=== PATIENT | male | born 1985 | race Caucasian/White ===

== ENCOUNTER 2019-11-23 15:47 | Inpatient (IN) | payer SELFPAY ==
[2019-11-23] VITALS (8 sets, daily range): BP systolic 87–136; BP diastolic 65–90; PULSE 101–123; RESP 16–23; TEMP 36.6; O2SAT 77–100; BMI 22.3
--- NOTE | 2019-11-23 15:51 | XR_ITS ---
WS: [id number] CHEST XRAY TECHNIQUE: Portable chest. CLINICAL INFORMATION: ams COMPARISON: None. FINDINGS: Heart: Normal cardiac silhouette. Lungs: Diffuse left greater than right airspace infiltrates compatible with pneumonia. Consider viral pneumonia. No significant pleural fluid. Bones: Normal visualized bony structures. XR/XR chest 1V portable [id number] IMPRESSION: Diffuse left greater than right airspace infiltrates consistent with pneumonia. Consider viral pneumonia.
--- NOTE | 2019-11-23 15:51 | ECG_ITS ---
Measurements Intervals [place] Rate: 116 P: 51 SD: 136 QRS: 96 QRSD: 97 T: 70 QT: 336 QTc: 467 SINUS TACHYCARDIA BORDERLINE RIGHT AXIS DEVIATION [QRS AXIS > 90] ABNORMAL RHYTHM ECG No previous ECG available for comparison Electronically Signed On 11-24-2019 18:07:20 CDT by Wm Mcleod M.D. [email or web address]
[2019-11-23] MEDS: sodium chloride 0.9% 1,000 ML 999 ML IV (16:11)
--- NOTE | 2019-11-23 16:15 | W.ED.OVERDOS ---
HPI - Overdose General: Chief Complaint: Overdose Stated Complaint: OVERDOSE Time Seen by Provider: 11/23/19 15:51 Source: patient and EMS Mode of arrival: EMS Limitations: altered mental status History of Present Illness: HPI Narrative: 34-year-old male who is a known IV drug user overdosed on fentanyl. Friends called EMS and they had performed CPR before EMS arrived. When EMS arrived they gave him 2 of Narcan he awoke was quite agitated so gave him Versed. Patient is required oxygen but now will awaken tell me his name. He still is somnolent as well. He denies any suicide attempt. complaint: accidental overdose Onset (ago): minute(s) Review of Systems Const: Denies: fever, chills, body aches or change in appetite Eyes: Denies: blurry vision or eye discomfort ENMT: Denies: throat pain or dental pain Card: Denies: chest pain Resp: Reports: shortness of breath GI: Denies: abdominal pain, nausea, vomiting or diarrhea : Denies: painful urination Musc: Denies: neck pain or back pain Skin/Breast: Denies: rash Neuro: Reports: confusion Psych: Denies: depression Jewel/Lymph: Denies: easy bruising All/Imm: Denies: hives PFSH ED PFSH: Social History Smoking and tobacco status: current every day smoker Physical Exam Const: EXAM LIMITATIONS: altered mental status GENERAL APPEARANCE: in distress and disheveled HENMT: COMMON NORMALS: normocephalic and head/scalp atraumatic HEAD & SCALP: normocephalic and atraumatic Eye: COMMON NORMALS: PERRL and EOMs intact bilaterally PUPIL: Yes PERRL Neck/C-Spine: COMMON NORMALS: full ROM and supple Chest: COMMONS NORMALS: inspection of chest normal and palpation of chest normal Resp: COMMON NORMALS: no retractions and no use of accessory muscles EFFORT & INSPECTION: Yes respiratory distress AUSCULTATION: rales and diminished lung sounds Cardio: COMMON NORMALS: regular rate, regular rhythm and no murmurs RATE: regular rate RHYTHM: regular rhythm GI: COMMON NORMALS: normal to inspection, nondistended, normoactive bowel sounds, soft to palpation, non-tender and no masses PALPATION: Yes soft Extremity: COMMON NORMALS: normal to inspection and full ROM Neuro: COMMON NORMALS: moves all extremities and no focal motor deficits Psych: COMMON NORMALS: mental status grossly normal, thought process normal and cooperative THOUGHT PROCESS: normal thought process Skin: COMMON NORMALS: no rashes or lesions noted and no wounds GENERAL SKIN EXAM: no rashes or lesions noted Course Vital Signs: Vital signs: Vital Signs Temperature 97.9 F 11/23/19 15:47 Pulse Rate 102 H 11/23/19 20:00 Respiratory Rate 16 11/23/19 20:00 Blood Pressure 136/90 11/23/19 20:00 Pulse Oximetry 92 11/23/19 20:00 MDM - Overdose MDM Narrative: Medical decision making narrative: Patient presents here with overdose on fentanyl. Patient did have CPR at scene by bystanders and had awoken after Narcan administration. Patient given Versed as he was combative after Narcan. Patient has been hypoxic and x-ray shows pulmonary edema versus a pneumonia. It is not improved while he is here. I spoke to Dr. Chauhan was seen patient will admit to the ICU. Patient started on antibiotics as well. This was recreational and not an intentional overdose Lab Data: Labs: Lab Results 11/23/19 11/23/19 11/23/19 Range/Units 17:32 17:32 18:31 WBC 16.3 H (4.0-10.0) 10^3/ uL RBC 5.10 (4.1-5.3) 10^6/u L Hgb 15.6 (11.7-16.6) g/dL Hct 46.7 (42.0-52.0) % MCV 91.6 (80-94) fL MCH 30.6 (28.0-34.0) pg MCHC 33.4 (30.0-36.0) g/dL RDW 12.6 (12.1-15.1) % Plt Count 194 (130-400) 10^3/c mm MPV 9.5 (7.4-10.4) fL Neut % (Auto) 82.6 % Lymph % (Auto) 11.2 % [place] % (Auto) 5.5 % Eos % (Auto) 0.3 % Baso % (Auto) 0.1 % Neut # (Auto) 13.4 H (1.8-7.7) 10^3/u L Lymph # (Auto) 1.8 (0.8-4.8) 10^3/u L [place] # (Auto) 0.9 (0.2-0.9) 10^3/u L Eos # (Auto) 0.1 (0.0-0.8) 10^3/u L Baso # (Auto) 0.0 (0.0-0.1) 10^3/u L Nucleated RBC % (a uto) 0 % Nucleated RBCs # 0.0 /100WBC Specimen Type Arterial Sample Site Radial, right ABG pH 7.29 L (7.35-7.45) ABG pCO2 50.0 H (35-45) mmHg ABG pO2 188.0 H* (80.0-100.0) mmH g ABG HCO3 23.9 (22-26) mmol/L ABG Base Excess -3.4 L (-2.0-2.0) mmol/ L Jeb Test Pos Hematocrit 50.9 (42-52) % O2 Delivery Device Nrb O2 Liters/Min 15.0 % FiO2 100.0 % [employer] Asc[employer] Consultant ID ed Sodium 140 (136-145) mmol/L Potassium 4.5 (3.5-5.1) mmol/L Chloride 105 (98-107) mmol/L Carbon Dioxide 25 (22-29) mmol/L Anion Gap 14.5 (5-19) BUN 10 (6-20) mg/dL Creatinine 0.8 (0.7-1.2) mg/dL GFR Calculation 111.3 (90-130) mL/min Glucose 102 (65-115) mg/dL Calculated Osmolal ity 286 (285-295) mOsm/k g Calcium 8.5 (8.5-10.5) mg/dL Total Bilirubin 0.3 (0.15-1.2) mg/dL AST 98 H (0-40) U/L ALT 118 H (0-41) U/L Alkaline Phosphata se 101 (40-130) IU/L Total Protein 7.0 (6.6-8.7) g/dL Albumin 3.7 (3.5-5.2) g/dL Globulin 3.3 (1.3-4.6) g/dL Salicylates < 0.3 L (3-10) mg/dL Acetaminophen < 5.0 L (10-30) ug/mL Ethyl Alcohol 71 H (0-10) mg/dL Imaging Data^: CXR: Attestation: I personally reviewed and interpreted this imaging study as follows: My impression: pulmonary edema EKG Data^: EKG 1: Attestation: I personally reviewed and interpreted this EKG as follows: EKG interpretation date: 11/23/19 EKG interpretation time: 16:28 Interpretation: sinus tach hr [address] or t wave abnormalities qrs 97 qtc 405 Critical Care Time Critical Care Time: Critical Care Time: Yes Total Critical Care Time: 35 Attestation: This case had a high probability of a clinically significant, sudden, or life threatening deterioration of this patient's condition which required my full and direct attention, intervention and personal management. Discharge Plan Discharge Patient Disposition: Admitted As Inpatient Clinical Impression: Drug overdose, Pulmonary edema Condition: Stable Prescriptions: No Action Unable to Assess RF: 0 Coding Level of Care Code ED Food And Beverage Manager for Chg Fwd Exam Comprehensive
[2019-11-23 17:49] LABS: Basophils % 0.1 %; Eosinophils # 0.1 10^3/uL (0.0-0.8); Eosinophils % 0.3 %; Hematocrit 46.7 % (42.0-52.0); Hemoglobin 15.6 g/dL (11.7-16.6); Lymphocytes # 1.8 10^3/uL (0.8-4.8); Lymphocytes % 11.2 %; Mean Corpuscular HGB Conc 33.4 g/dL (30.0-36.0); Mean Corpuscular Hemoglobin 30.6 pg (28.0-34.0); Mean Corpuscular Volume 91.6 fL (80-94); Mean Platelet Volume 9.5 fL (7.4-10.4); Monocytes # 0.9 10^3/uL (0.2-0.9); Monocytes % 5.5 %; Neutrophils # 13.4 10^3/uL (1.8-7.7); Neutrophils % 82.6 %; Nucleated Red Blood Cells % 0 %; Platelet Count 194 10^3/cmm (130-400); Red Cell Distribution Width 12.6 % (12.1-15.1); White Blood Count 16.3 10^3/uL (4.0-10.0)
--- NOTE | 2019-11-23 17:51 | XR_ITS ---
WS: [id number] CHEST XRAY TECHNIQUE: Portable chest. CLINICAL INFORMATION: sob COMPARISON: November 23, 2019 FINDINGS: Heart: Normal cardiac silhouette. Lungs: Diffuse bilateral airspace infiltrates worse in the left unchanged from previous. Findings con sistent with pneumonia, consider viral pneumonia. Bones: Normal visualized bony structures. XR/XR chest 1V portable [id number] IMPRESSION: Unchanged diffuse left greater than right airspace infiltrates consistent with pneumonia. Consider viral pneumonia.
[2019-11-23 18:02] LABS: Alanine Aminotransferase 118 U/L (0-41); Albumin Level 3.7 g/dL (3.5-5.2); Alcohol Level 71 mg/dL (0-10); Alkaline Phosphatase 101 IU/L (40-130); Anion Gap 14.5 (5-19); Aspartate Amino Transferase 98 U/L (0-40); Blood Urea Nitrogen 10 mg/dL (6-20); Calcium 8.5 mg/dL (8.5-10.5); Carbon Dioxide 25 mmol/L (22-29); Chloride 105 mmol/L (98-107); Creatinine Clr Calc Pharmacy 137.8554; Globulin 3.3 g/dL (1.3-4.6); Glomerular Filtration Rate 111.3 mL/min (90-130); Glucose 102 mg/dL (65-115); Osmolality Calculated 286 mOsm/kg (285-295); Potassium 4.5 mmol/L (3.5-5.1); Sodium 140 mmol/L (136-145); Total Bilirubin 0.3 mg/dL (0.15-1.2)
[2019-11-23 18:04] LABS: Acetaminophen < 5.0 ug/mL (10-30); Salicylate < 0.3 mg/dL (3-10)
[2019-11-23 18:41] LABS: ABG PH Result 7.29 (7.35-7.45); Arterial Blood Gas Hematocrit 50.9 % (42-52); Base Excess ABG -3.4 mmol/L (-2.0-2.0); Blood Gas Allen Test Pos; Blood Gas Sample Site Radial, right; Blood Gas Sample Type Arterial; HCO3 ABG 23.9 mmol/L (22-26); Oxygen Device NRB
[2019-11-23] MEDS: piperacillin-tazobactam 3.375 GM in sodium chloride 0.9% (plus) 50 ML IV (18:47)
[2019-11-23] MEDS: vancomycin 1,000 MG in sodium chloride 0.9% 250 ML 250 MG IV (18:47)
--- NOTE | 2019-11-23 18:55 | PC.NURSE ---
RT at bedside to place pt on Bipap. Pt awake and alert at this time, cooperative with staff. Pt states he was not trying to hurt himself with the overdose, he was only trying to get high. pt requesting water, Dr Bush notified and ok with water.
[2019-11-23] MEDS: naloxone 0.4 mg/ml SDV IVP (20:32)
[2019-11-23] MEDS: ondansetron 2 mg/ML SDV 2 mL 4 MG IVP (21:31)
--- NOTE | 2019-11-23 21:34 | PM.HP ---
Providers/Chief Complaint Admitting Physician: Gissel Primary Care Provider: none Chief Complaint: OVERDOSE, RESP DISTRESS History of Present Illness Uziel Moy is a 34 year old male who presented to the emergency room via EMS after an accidental fentanyl overdose. His friend started CPR on him in the field. EMS arrived and gave him Narcan. He became agitated after that and did get some Versed. Chest x-ray in the emergency room showed bilateral infiltrates and patient was having some hypoxemia. He remained lethargic as well. He was ultimately put on BiPAP. He states that he uses narcotics usually in IV route about once a week. Denied any suicide attempt. Denies any recent problems with cough, fever. No known sick contacts including no known sick contacts with COVID-19. Patient denies previous hospitalizations for narcotic overdose. He has had alcohol withdrawal symptoms before. He did admit to drinking this evening. Denied any significant medical problems. During the course of my evaluation in the emergency room, patient began having hemoptysis. It was pinkish-red with a slightly frothy appearance. He had some posttussive nausea but no emesis. He filled up the bottom of an emesis basin. Review of Systems Const: Denies: fever, chills or change in weight Eyes: Denies: change in vision ENMT: Denies: throat pain, oral sores/lesions or nasal congestion Card: Reports: chest pain (With cough); Denies: palpitations or edema Resp: Reports: other (Prior to tonight, denied shortness of breath or cough) GI: Denies: abdominal pain, nausea, vomiting, diarrhea or constipation : Reports: other (No recent urinary changes) Musc: Denies: joint pain or redness Skin/Breast: Denies: rash Neuro: Denies: headache, numbness in extremities or weakness in extremities Psych: Denies: anxiety or depression Jewel/Lymph: Denies: easy bruising or easy bleeding Medications/Allergies Home Medications Medication Instructions Recorded Confirmed Last Taken Type No Known Home Medications 11/23/19 11/23/19 Unknown History Allergies Allergy/AdvReac Type Severity Reaction Status Date / Time No Known Allergies Allergy Verified 11/23/19 21:42 PFSH Acute PFSH: Medical History (Updated 11/24/19 @ 08:03 by Yolanda Chauhan MD) Patient denies significant medical history Surgical History (Updated 11/23/19 @ 21:40 by Yolanda Chauhan MD) History of hydrocelectomy left History of surgery on arm left, due to fracture Family History (Updated 11/23/19 @ 21:40 by Yolanda Chauhan MD) Other Family history unknown Social History (Updated 11/23/19 @ 21:41 by Yolanda Chauhan MD) Smoking and tobacco status: current every day smoker Alcohol intake: current Alcohol intake frequency: 3 or more drinks per day Alcohol type: hard liquor Alcohol use comment: lately about 10 shots per day Substance/Drug Use: current Substance/Drug use type: Opiates and IV Drugs Other substance/drug use details: weekly Vitals/I&O/Wt Last Vital Signs Temp 97.9 F 11/23/19 15:47 Pulse 102 H 11/23/19 20:00 Resp 16 11/23/19 20:00 BP 136/90 11/23/19 20:00 Pulse Ox 92 11/23/19 20:00 11/23/19 11/23/19 11/23/19 06:59 14:59 22:59 Intake Total 1300 / 1300 Balance 1300 / 1300 Weight last 48 hrs Weight 72.575 kg Physical Exam Const: COMMON NORMALS: oriented x3 and alert HENMT: HEAD & SCALP: normocephalic and atraumatic NOSE: external nose normal and nasal discharge clear; no epistaxis MOUTH: tongue normal (No bite schmidt) and other (No visible areas of bleeding seen in the mouth) TEETH & GINGIVA: Yes fair dentition THROAT: posterior oropharynx normal Eye: COMMON NORMALS: PERRL and EOMs intact bilaterally Neck/C-Spine: COMMON NORMALS: supple Lymph: LYMPHATIC: no lymphadenopathy noted Chest: CHEST: Yes tenderness sternum Resp: EFFORT & INSPECTION: Yes tachypneic and Yes actively coughing productive AUSCULTATION: crackles Laterality: bilateral (Left greater than right) and diminished lung sounds Cardio: COMMON NORMALS: regular rhythm, no gallops, no murmurs and no rub RATE: tachycardic GI: COMMON NORMALS: soft to palpation and non-tender AUSCULTATION: Yes normoactive bowel sounds Extremity: COMMON NORMALS: normal capillary refill, no clubbing, cyanosis or edema and no calf tenderness Neuro: COMMON NORMALS: moves all extremities and no sensory deficits noted Psych: COMMON NORMALS: cooperative Skin: NARRATIVE SKIN EXAM: Patient with injection sites noted to the arms, some scattered bruises. He has some dried blood on his chest and on his face Data : 11/24/19 04:20 11/24/19 04:20 Micro: Microbiology 11/23/19 18:37 Blood Culture - Preliminary Blood SPECIMEN COLLECTED 11/23/19 18:37 Blood Culture - Preliminary Blood SPECIMEN COLLECTED A&P Assessment and plan (1) Drug overdose: With IV fentanyl. Status post Narcan and CPR in the field. This was recreational/accidental in nature. Status: Acute Qualifiers: Encounter type: initial encounter Injury intent: accidental or unintentional Qualified Code(s): T50.901A - Poisoning by unspecified drugs, medicaments and biological substances, accidental (unintentional), initial encounter (2) Bilateral pulmonary infiltrates on chest x-ray: Differential includes pulmonary edema related to acute event, aspiration, trauma from CPR, infection among others. I have seen a similar appearance in the past with those who nasally ingested narcotics as well. Status: Acute (3) Hemoptysis: Status: Acute (4) Narcotic abuse: Weekly IV narcotics reported Status: Acute (5) Alcohol use: With acute alcohol intoxication Status: Acute Additional A&P Information Other diagnoses include: Elevated transaminases Nicotine dependence with cigarettes ICU admission Broad-spectrum antibiotics including vancomycin, Zosyn and Levaquin. This will provide coverage possibility of MRSA and IV drug user, aspiration and other, pulmonary infections Follow-up pending blood cultures Sputum culture is ordered Oxygen therapy as needed, BiPAP as needed Given appearance on chest x-ray will send for COVID testing as well Check BNP Check pro calcitonin, LDH, CK and CRP Consider consultation with pulmonology in the morning Alcohol withdrawal monitoring SCDs for DVT prophylaxis, no pharmacological prophylaxis secondary to hemoptysis Supportive care otherwise Monitor closely for acute changes Concerns and plans were discussed with patient Full code Attestations Medical Necessity Statement*: Anticipated stay greater than 2 midnights in this patient initially presenting as an overdose who now has evidence of significant abnormalities on chest x-ray and hemoptysis. Covering empirically for pneumonia and further testing as noted above. At high risk of rapid clinical decline. Coding Level of Care Code Acute Tech Ed/Woodshop Teacher for [facility] Fwd Exam Comprehensive Diagnoses Drug overdose T50.901A Encounter type: initial encounter Injury intent: accidental or unintentional Bilateral pulmonary infiltrates on chest x-ray R91.8 Hemoptysis R04.2 Narcotic abuse F11.10 Alcohol use Z72.89
[2019-11-23] MEDS: levofloxacin-dextrose 5 % 750 MG/150 ML PREMIX 100 MG IV (22:37)
--- NOTE | 2019-11-23 22:38 | PC.NURSE ---
covid nasal swab completed per protochol.
[2019-11-23 22:57] LABS: Lactic Sepsis W/Reflex 1.8 mmol/L (0.5-2.2)
[2019-11-23 23:07] LABS: NT Pro B Type Natriuretic Pept 6 pg/mL (0-125); Procalcitonin 0.36 ng/mL (0-0.5)
[2019-11-23 23:18] LABS: C Reactive Protein 9.8 mg/L (0.0-4.9); Creatine Phosphokinase 111 U/L (39-308); Lactate Dehydrogenase 198 U/L (135-225)
[2019-11-24] VITALS (94 sets, daily range): BP systolic 113–143; BP diastolic 62–86; PULSE 77–124; RESP 16–34; TEMP 36.6–37.3; O2SAT 86–100
[2019-11-24 00:14] LABS: Magnesium 1.8 mg/dL (1.7-2.3)
[2019-11-24] MEDS: sodium chloride 0.45% 1,000 ML 50 ML IV (00:22)
--- NOTE | 2019-11-24 00:38 | PC.PHAR ---
Pharmacokinetic dosing service Date: 11/24/19 Time: 38 Objective: Patient: Uziel Moy Floor: ICU-1 Age: 34 yo Serum creatinine: 0.8 mg/dL Height: 71.0 Inches Weight (kg): 72.575 Diagnosis: Relevant medical/social history: Cultures and sensitivities: Other labs: Assessment: IBW (kg): 75.30 Dosing wt(kg): 72.575 Estimated Creatinine clearance (ml/min): 130 Clearance limited to 130 ml/min to reduce risk of overdosing. CRCL method: Cockcroft and Gault using ibw(default). Drug selected: Vancomycin Loading dose (mg): 0 Vd (liters): 65.3 (factor used: 0.9 L/kg) [place] (hr-1): 0.112 Half life (hrs): 6.19 Recommended dose: 1000 mg Interval: 8 hrs Infusion time (hrs): 1.5 Predicted peak (mcg/mL): 23.8 Predicted trough (mcg/mL): 11.49 Total body weight is being used for vancomycin dosing. Renal function is stable [ ] /unstable [ ] Recommendations: Give Vancomycin 1000 mg q 8 hrs with an expected Cpeak of 23.8 mcg/ml and an expected Ctrough of 11.49 mcg/ml Renal dosing of other antibiotics (review renal dosing of other medications and list guidelines here): Thank you for the consult, will continue to follow. Signature: Sarah [facility]
[2019-11-24] MEDS: vancomycin 1,000 MG in sodium chloride 0.9% 250 ML 250 MG IV ×3 (04:16→18:00)
[2019-11-24] MEDS: piperacillin-tazobactam 3.375 GM in sodium chloride 0.9% (plus) 50 ML IV ×3 (04:17→18:00)
[2019-11-24 05:18] LABS: Basophils % 0.1 %; Hematocrit 43.6 % (42.0-52.0); Lymphocytes # 2.8 10^3/uL (0.8-4.8); Lymphocytes % 13.2 %; Mean Corpuscular HGB Conc 34.4 g/dL (30.0-36.0); Mean Corpuscular Hemoglobin 31.6 pg (28.0-34.0); Mean Platelet Volume 9.8 fL (7.4-10.4); Monocytes # 0.9 10^3/uL (0.2-0.9); Monocytes % 4.4 %; Neutrophils # 17.4 10^3/uL (1.8-7.7); Neutrophils % 81.9 %; Nucleated Red Blood Cells % 0 %; Platelet Count 179 10^3/cmm (130-400); Red Blood Count 4.74 10^6/uL (4.1-5.3); Red Cell Distribution Width 12.8 % (12.1-15.1); White Blood Count 21.3 10^3/uL (4.0-10.0)
[2019-11-24 05:32] LABS: Amphetamines Screen Urine Positive (Negative); Barbiturates Screen Urine Negative (Negative); Benzodiazepines Screen Urine Negative (Negative); Cocaine Screen Urine Negative (Negative); Opiate Screen Urine Positive (Negative); PCP Screen Urine Positive (Negative); THC Screen Urine Negative (Negative)
[2019-11-24 05:38] LABS: Alanine Aminotransferase 104 U/L (0-41); Albumin Level 3.7 g/dL (3.5-5.2); Alkaline Phosphatase 92 IU/L (40-130); Anion Gap 13.8 (5-19); Aspartate Amino Transferase 70 U/L (0-40); Blood Urea Nitrogen 11 mg/dL (6-20); Calcium 9.2 mg/dL (8.5-10.5); Carbon Dioxide 27 mmol/L (22-29); Chloride 101 mmol/L (98-107); Globulin 3.5 g/dL (1.3-4.6); Glomerular Filtration Rate 129.9 mL/min (90-130); Glucose 124 mg/dL (65-115); Osmolality Calculated 281 mOsm/kg (285-295); Potassium 4.8 mmol/L (3.5-5.1); Sodium 137 mmol/L (136-145); Total Bilirubin 0.7 mg/dL (0.15-1.2); Total Protein 7.2 g/dL (6.6-8.7)
[2019-11-24] MEDS: pantoprazole 40 mg SDV IVP (08:07)
[2019-11-24] MEDS: folic acid 1 mg Tablet PO (08:53)
[2019-11-24] MEDS: multivitamin therapeutic Tablet 1 TAB PO (08:53)
[2019-11-24 10:30] LABS: Vancomycin Trough 10.1 ug/mL (10-15)
--- NOTE | 2019-11-24 11:55 | P.PN_ITS ---
Subjective Subjective: Interval history: The patient reports feeling better. No acute distress. He reports improved shortness of breath and cough. Hemoptysis has stopped. However there was a lot of blood until this morning. Denies nausea or vomiting. No abdominal pain or chest pain. No diarrhea. No fever or chills Medications: Reviewed: Yes Medication Review Details: Generic Name Dose Route Start Last Admin Trade Name Naun PRN Reason Stop Dose Admin Folic Acid 1 mg 11/24/19 09:00 11/24/19 08:53 Folic Acid PO 1 mg DAILY ALLAN Administration Levofloxacin/Dextr ose 750 mg in 150 mls @ 100 mls/hr 11/23/19 22:15 11/23/19 22:37 Levaquin-D5w IV 100 mls/hr Q24H ALLAN Administration Protocol Sodium Chloride 1,000 mls @ 50 ml s/hr 11/23/19 23:49 11/24/19 00:22 Sodium Chloride 0.45% IV 50 mls/hr .Q20H ALLAN Administration Piperacillin Sod/T azobactam 50 mls @ 12.5 mls /hr 11/24/19 03:00 11/24/19 10:41 Sod 3.375 gm/ So dium Chloride IV 12.5 mls/hr Q8H ALLAN Administration Protocol Vancomycin HCl 1,0 00 mg/ 250 mls @ 250 mls /hr 11/24/19 03:00 11/24/19 10:41 Sodium Chloride IV 250 mls/hr Q8H ALLAN Administration Multivitamins Ther apeutic 1 tab 11/24/19 09:00 11/24/19 08:53 Multivitamin Tab PO 1 tab DAILY ALLAN Administration Pantoprazole Sodiu m 40 mg 11/24/19 09:00 11/24/19 08:07 Protonix IVP 40 mg DAILY ALLAN Administration Vitals/I&O/Wt Last Vital Signs Temp 98 F 11/24/19 10:00 Pulse 83 11/24/19 10:00 Resp 22 H 11/24/19 10:00 BP 125/77 11/24/19 10:00 Pulse Ox 99 11/24/19 10:00 11/23/19 11/24/19 11/24/19 22:59 06:59 14:59 Intake Total 1300 / 1300 730 / 2030 50 / 50 Output Total 600 / 600 Balance 1300 / 1300 130 / 1430 50 / 50 Weight last 48 hrs Weight 72.575 kg Weight 72.575 kg Physical Exam Narrative: EXAM NARRATIVE: The patient is awake alert and oriented. No acute distress. Mood and affect are appropriate. Responses are adequate. Skin is warm and dry. Moist mucous movements. No JVD. Lungs bilateral crackles are present. No respiratory distress at rest. No accessory muscle use. Heart S1, S2, regular Abdomen soft, nontender, bowel sounds are present Extremities no edema cyanosis or calf tenderness bilaterally Neuro exam nonfocal Eyes PERRLA, extra muscles intact. Normal speech Data : 11/24/19 04:20 11/24/19 04:20 Other Labs: Laboratory Results WBC 21.3 10^3/uL (4.0-10.0) H 11/24/19 04:20 RBC 4.74 10^6/uL (4.1-5.3) 11/24/19 04:20 Hgb 15.0 g/dL (11.7-16.6) 11/24/19 04:20 Hct 43.6 % (42.0-52.0) 11/24/19 04:20 MCV 92.0 fL (80-94) 11/24/19 04:20 MCH 31.6 pg (28.0-34.0) 11/24/19 04:20 MCHC 34.4 g/dL (30.0-36.0) 11/24/19 04:20 RDW 12.8 % (12.1-15.1) 11/24/19 04:20 Plt Count 179 10^3/cmm (130-400) 11/24/19 04:20 MPV 9.8 fL (7.4-10.4) 11/24/19 04:20 Neut % (Auto) 81.9 % 11/24/19 04:20 Lymph % (Auto) 13.2 % 11/24/19 04:20 [place] % (Auto) 4.4 % 11/24/19 04:20 Eos % (Auto) 0.0 % 11/24/19 04:20 Baso % (Auto) 0.1 % 11/24/19 04:20 Neut # (Auto) 17.4 10^3/uL (1.8-7.7) H 11/24/19 04:20 Lymph # (Auto) 2.8 10^3/uL (0.8-4.8) 11/24/19 04:20 [place] # (Auto) 0.9 10^3/uL (0.2-0.9) 11/24/19 04:20 Eos # (Auto) 0.0 10^3/uL (0.0-0.8) 11/24/19 04:20 Baso # (Auto) 0.0 10^3/uL (0.0-0.1) 11/24/19 04:20 Nucleated RBC % (auto) 0 % 11/24/19 04:20 Nucleated RBCs # 0.0 /100WBC 11/24/19 04:20 Specimen Type Arterial 11/23/19 18:31 Sample Site Radial, right 11/23/19 18:31 ABG pH 7.29 (7.35-7.45) L 11/23/19 18:31 ABG pCO2 50.0 mmHg (35-45) H 11/23/19 18:31 ABG pO2 188.0 mmHg (80.0-100.0) H* 11/23/19 18:31 ABG HCO3 23.9 mmol/L (22-26) 11/23/19 18:31 ABG Base Excess -3.4 mmol/L (-2.0-2.0) L 11/23/19 18:31 Jeb Test Pos 11/23/19 18:31 Hematocrit 50.9 % (42-52) 11/23/19 18:31 O2 Delivery Device Nrb 11/23/19 18:31 O2 Liters/Min 15.0 % 11/23/19 18:31 FiO2 100.0 % 11/23/19 18:31 Residential Insurance Inspector ID ed 11/23/19 18:31 Sodium 137 mmol/L (136-145) 11/24/19 04:20 Potassium 4.8 mmol/L (3.5-5.1) 11/24/19 04:20 Chloride 101 mmol/L (98-107) 11/24/19 04:20 Carbon Dioxide 27 mmol/L (22-29) 11/24/19 04:20 Anion Gap 13.8 (5-19) 11/24/19 04:20 BUN 11 mg/dL (6-20) 11/24/19 04:20 Creatinine 0.7 mg/dL (0.7-1.2) 11/24/19 04:20 GFR Calculation 129.9 mL/min (90-130) 11/24/19 04:20 Glucose 124 mg/dL (65-115) H 11/24/19 04:20 Calculated Osmolality 281 mOsm/kg (285-295) L 11/24/19 04:20 Lactic Acid 1.8 mmol/L (0.5-2.2) 11/23/19 22:35 Calcium 9.2 mg/dL (8.5-10.5) 11/24/19 04:20 Magnesium 1.8 mg/dL (1.7-2.3) 11/23/19 17:32 Total Bilirubin 0.7 mg/dL (0.15-1.2) 11/24/19 04:20 AST 70 U/L (0-40) H 11/24/19 04:20 ALT 104 U/L (0-41) H 11/24/19 04:20 Alkaline Phosphatase 92 IU/L (40-130) 11/24/19 04:20 Lactate Dehydrogenase 198 U/L (135-225) 11/23/19 22:35 Creatine Kinase 111 U/L (39-308) 11/23/19 22:35 C-Reactive Protein 9.8 mg/L (0.0-4.9) H 11/23/19 22:35 NT-Pro-B Natriuret Pep 6 pg/mL (0-125) 11/23/19 22:35 Total Protein 7.2 g/dL (6.6-8.7) 11/24/19 04:20 Albumin 3.7 g/dL (3.5-5.2) 11/24/19 04:20 Globulin 3.5 g/dL (1.3-4.6) 11/24/19 04:20 Procalcitonin 0.36 ng/mL (0-0.5) 11/23/19 22:35 Vancomycin Trough 10.1 ug/mL (10-15) 11/24/19 10:00 Salicylates < 0.3 mg/dL (3-10) L 11/23/19 17:32 Urine Opiates Screen Positive ng/mL (Negative) H 11/24/19 04:35 Acetaminophen < 5.0 ug/mL (10-30) L 11/23/19 17:32 Ur Barbiturates Screen Negative ng/mL (Negative) 11/24/19 04:35 Ur Phencyclidine Scrn Positive ng/mL (Negative) H 11/24/19 04:35 Ur Amphetamines Screen Positive ng/mL (Negative) H 11/24/19 04:35 U Benzodiazepines Scrn Negative ng/mL (Negative) 11/24/19 04:35 Urine Cocaine Screen Negative ng/mL (Negative) 11/24/19 04:35 U Marijuana (THC) Screen Negative ng/mL (Negative) 11/24/19 04:35 Ethyl Alcohol 71 mg/dL (0-10) H 11/23/19 17:32 Impressions Chest X-Ray 11/23/19 17:51 IMPRESSION: Unchanged diffuse left greater than right airspace infiltrates consistent with pneumonia. Consider viral pneumonia. Micro: Microbiology 11/23/19 18:37 Blood Culture - Preliminary Blood SPECIMEN COLLECTED 11/23/19 18:37 Blood Culture - Preliminary Blood SPECIMEN COLLECTED A&P Additional A&P Information Acute hypoxic respiratory failure secondary to fentanyl overdose. Currently stabilized. Oxygenation is adequate with nasal cannula. Off BiPAP. Continue current management. In ICU. Bilateral airspace disease, hemoptysis. It seems that his hemoptysis has stopped. Most likely he developed either noncardiogenic pulmonary edema or acute alveolar hemorrhage due to drugs. He is known to use fentanyl and his U tox was positive for opiates and amphetamine. Continue close monitoring in ICU settings. The patient will be seen by Dr. Aguila tomorrow. He is off today. A [facility] patient's procalcitonin is normal I will still continue antibiotics at least until tomorrow. Will recheck his CBC tomorrow. His white blood cells are still very high.COVID test is ordered and pending. He is on respiratory isolation. History of alcohol use. No evidence of withdrawals. He is on vitamin replacement. GI prophylaxis. IV Protonix. Elevated LFTs. Probably secondary to alcohol and drugs. Close outpatient follow-up. DVT prophylaxis. Teds and SCDs. No anticoagulation due to hemoptysis. The plan of care was discussed with the patient. He verbalized understanding a nd agreement. Attestations Medical Necessity Statement*: The plan of care requires that he remains in ICU. Coding Level of Care Code Acute Sharepoint Solutions Architect for Moustapha Leal
--- NOTE | 2019-11-24 21:30 | PC.NURSE ---
Patient states that he feels like I got kicked in the chest by a horse. Denies any radiation of pain. VSS. Will continue to monitor.
[2019-11-24] MEDS: levofloxacin-dextrose 5 % 750 MG/150 ML PREMIX 100 MG IV (21:39)
--- NOTE | 2019-11-24 22:32 | PC.NURSE ---
Pain unchanged from previous assessment. Patient states that pain is worse with movement and improves with rest
--- NOTE | 2019-11-24 23:32 | PC.NURSE ---
Patient declines assistance with bathing, states that he prefers to bathe in the morning
[2019-11-25] VITALS (12 sets, daily range): BP systolic 113–139; BP diastolic 71–88; PULSE 87–109; RESP 16–33; TEMP 36.7–37.6; O2SAT 94–99
--- NOTE | 2019-11-25 02:09 | PC.NURSE ---
Patient asleep, in no apparent distress. Will continue to monitor.
[2019-11-25] MEDS: vancomycin 1,000 MG in sodium chloride 0.9% 250 ML 250 MG IV ×2 (03:02→11:57)
[2019-11-25] MEDS: piperacillin-tazobactam 3.375 GM in sodium chloride 0.9% (plus) 50 ML IV ×3 (04:11→20:44)
[2019-11-25 04:39] LABS: Basophils % 0.2 %; Eosinophils # 0.2 10^3/uL (0.0-0.8); Eosinophils % 1.8 %; Hematocrit 39.2 % (42.0-52.0); Hemoglobin 13.2 g/dL (11.7-16.6); Lymphocytes # 2.6 10^3/uL (0.8-4.8); Lymphocytes % 23.1 %; Mean Corpuscular HGB Conc 33.7 g/dL (30.0-36.0); Mean Corpuscular Hemoglobin 30.4 pg (28.0-34.0); Mean Corpuscular Volume 90.3 fL (80-94); Mean Platelet Volume 10.1 fL (7.4-10.4); Monocytes # 0.7 10^3/uL (0.2-0.9); Monocytes % 6.4 %; Neutrophils # 7.8 10^3/uL (1.8-7.7); Neutrophils % 68.2 %; Nucleated Red Blood Cells % 0 %; Platelet Count 134 10^3/cmm (130-400); Red Blood Count 4.34 10^6/uL (4.1-5.3); Red Cell Distribution Width 12.3 % (12.1-15.1); White Blood Count 11.4 10^3/uL (4.0-10.0)
[2019-11-25 05:06] LABS: Albumin Level 3.3 g/dL (3.5-5.2); Blood Urea Nitrogen 8 mg/dL (6-20); Calcium 8.6 mg/dL (8.5-10.5); Carbon Dioxide 27 mmol/L (22-29); Chloride 102 mmol/L (98-107); Glomerular Filtration Rate 191.5 mL/min (90-130); Glucose 124 mg/dL (65-115); Phosphorus 1.8 mg/dL (2.5-4.5); Sodium 136 mmol/L (136-145)
[2019-11-25 05:07] LABS: Magnesium 1.7 mg/dL (1.7-2.3)
[2019-11-25] MEDS: thiamine 100 mg Tablet PO (07:59)
[2019-11-25] MEDS: folic acid 1 mg Tablet PO (07:59)
[2019-11-25] MEDS: pantoprazole 40 mg SDV IVP (07:59)
[2019-11-25] MEDS: multivitamin therapeutic Tablet 1 TAB PO (07:59)
--- NOTE | 2019-11-25 08:38 | PM.PN ---
Subjective Subjective: Interval history: No acute event overnight. On examination patient is lying comfortably in bed. Having occasional cough but no more hemoptysis anymore. He denies of having any headache, dizziness, nausea, vomiting, abdominal pain, chest pain, fevers or chills. Labs noted. Vitals/I&O/Wt Last Vital Signs Temp 99.7 F H 11/25/19 08:00 Pulse 109 H 11/25/19 08:00 Resp 21 H 11/25/19 08:00 BP 113/71 11/25/19 08:00 Pulse Ox 95 11/25/19 08:00 11/24/19 11/25/19 11/25/19 22:59 06:59 14:59 Intake Total 350 / 700 Output Total 650 / 1350 900 / 2250 Balance -300 / -650 -900 / -1550 Weight last 48 hrs Weight 82.236 kg Weight 72.575 kg Weight 72.575 kg Physical Exam Narrative: EXAM NARRATIVE: General: No acute distress, AO x3, not lethargic, CIWA?3 HEENT: PERRLA, pupils bilaterally equal and reactive Chest: Normal vesicular breath sounds, rhonchi, coarse crackles present on the left lower zone more than right lower zone. CVS: S1-S2 regular, no murmurs, no tachycardia, no gallops, no rubs Abdomen: Soft, nontender, no organomegaly, bowel sounds present Neuro: No focal deficits, no facial deformity, AO x3, power 5/5 in all limbs Data : 11/25/19 04:00 11/25/19 04:00 Micro: Microbiology 11/23/19 18:37 Blood Culture - Preliminary Blood NEGATIVE TO DATE 11/23/19 18:37 Blood Culture - Preliminary Blood NEGATIVE TO DATE 11/24/19 12:55 Gram Stain - Final Sputum - Expectorated Sputum A&P Assessment and plan (1) Acute respiratory failure with hypoxia: Status: Acute (2) Drug overdose: Status: Acute Qualifiers: Encounter type: initial encounter Injury intent: accidental or unintentional Qualified Code(s): T50.901A - Poisoning by unspecified drugs, medicaments and biological substances, accidental (unintentional), initial encounter (3) Bilateral pulmonary infiltrates on chest x-ray: Status: Acute (4) Hemoptysis: Status: Acute (5) Narcotic abuse: Status: Acute (6) Alcohol use: With acute alcohol intoxication Status: Acute Additional A&P Information Acute hypoxic respiratory failure secondary to fentanyl overdose. Currently resolved. Patient saturating more than 92% on room air. Bilateral pulmonary infiltrates: Most likely due to aspiration during intoxication and possible CPR as an outpatient. Patient is on vancomycin, Zosyn, levofloxacin. Day 3 today. Check MRSA swab if negative will discontinue vancomycin. Last dose of levofloxacin today to finish a 3-day course. Continue Zosyn for now. We will de-escalate antibiotics as per the culture results from sputum. COVID 19- so we will discontinue isolation. Hemoptysis: Most likely secondary to CPR versus noncardiogenic pulmonary edema from narcotic inhalation. Now resolved. History of alcohol use: Currently CIWA?3. Patient having mild tachycardia on examination today could be related to early alcohol withdrawal. We will start him on Librium 25 mg every 8 hourly. Liver function tests appreciated. We will change Ativan to 1 mg IV every 2 hours as needed. Elevated LFTs: Most likely because of chronic alcohol abuse. We will check hepatitis panel and HIV. DVT prophylaxis. SCDs/Lovenox daily. Full code. Regular diet. Transfer patient to floors. If patient continues to do well can plan to discharge tomorrow on oral antibiotics. Patient denies of having any suicidal or homicidal ideations and states fentanyl overdose was accidental and he uses fentanyl once every 2 weeks for recreational purposes. Attestations Medical Necessity Statement*: Fentanyl overdose, acute hypoxic respiratory failure, alcohol abuse. 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
[2019-11-25] MEDS: chlordiazePOXIDE 25 mg Capsule PO ×2 (08:56→16:19)
[2019-11-25] MEDS: pantoprazole DR 40 mg Tablet PO (08:56)
--- NOTE | 2019-11-25 09:20 | PC.NURSE ---
Spoke with Dr. Mays who states that patient is off of isolation precautions at this time as patients COVIID test was negative.
--- NOTE | 2019-11-25 10:16 | PC.RESP ---
Information to patient for Smoking Cessation and a schedule of pending classes.
--- NOTE | 2019-11-25 10:52 | PC.NURSE ---
Report called to Helen ANTONIO on Med-Surg at this time.
--- NOTE | 2019-11-25 11:00 | PC.NURSE ---
Patient to the floor at this time.
--- NOTE | 2019-11-25 11:29 | PC.NURSE ---
Attempted to call Ryann and let her know that patient has been taken to the floor but there was no answer.
--- NOTE | 2019-11-25 13:47 | PC.PHAR ---
PHARMACY TO DOSE VANCOMYCIN: renal function improvement. increased dose to 1250 . trough 11/25@1800
--- NOTE | 2019-11-25 19:10 | PC.NURSE ---
Introduction of staff and report received, aidet.
[2019-11-25] MEDS: levofloxacin-dextrose 5 % 750 MG/150 ML PREMIX 100 MG IV (20:44)
[2019-11-25 22:46] LABS: HIV 1 & 2 Antibody Non-Reactive (Non-Reactiv); HIV 1 & 2 Antigen Non-Reactive (Non-Reactiv)
[2019-11-26] VITALS (7 sets, daily range): BP systolic 112–127; BP diastolic 71–79; PULSE 90–106; RESP 18; TEMP 36.7–37.3; O2SAT 95–96
[2019-11-26] MEDS: chlordiazePOXIDE 25 mg Capsule PO ×2 (01:19→08:02)
--- NOTE | 2019-11-26 01:20 | PC.NURSE ---
during medicaiton administration patient stated theres got to be a better damn medication schedule other than every damn hr , explained to patient the medication scheduled is based off of the amount of time in between each dose to maintain the effective level for the medication to work, patient education on Librium and states i don't have damn withdraw or anxiety i ain't taken that medication again
[2019-11-26 01:48] LABS: Hepatitis A Antibody IgM Non-Reactive (Nonreactive); Hepatitis B Core AB, Total Non-Reactive (Nonreactive); Hepatitis B Surface Antigen Non-Reactive (Nonreactive); Hepatitis C Virus Antibody Reactive (Nonreactive)
[2019-11-26 02:26] LABS: Hepatitis B Surface AB > 1000.0 (0-8.5)
[2019-11-26 05:36] LABS: Basophils % 0.3 %; Eosinophils # 0.3 10^3/uL (0.0-0.8); Hematocrit 39.6 % (42.0-52.0); Hemoglobin 13.6 g/dL (11.7-16.6); Lymphocytes # 2.5 10^3/uL (0.8-4.8); Lymphocytes % 26.3 %; Mean Corpuscular HGB Conc 34.3 g/dL (30.0-36.0); Mean Corpuscular Hemoglobin 30.7 pg (28.0-34.0); Mean Corpuscular Volume 89.4 fL (80-94); Monocytes # 0.7 10^3/uL (0.2-0.9); Monocytes % 7.4 %; Neutrophils # 6.1 10^3/uL (1.8-7.7); Neutrophils % 62.8 %; Nucleated Red Blood Cells % 0 %; Platelet Count 155 10^3/cmm (130-400); Red Blood Count 4.43 10^6/uL (4.1-5.3); White Blood Count 9.6 10^3/uL (4.0-10.0)
[2019-11-26] MEDS: piperacillin-tazobactam 3.375 GM in sodium chloride 0.9% (plus) 50 ML IV (05:51)
[2019-11-26 06:01] LABS: Alanine Aminotransferase 67 U/L (0-41); Albumin Level 3.5 g/dL (3.5-5.2); Alkaline Phosphatase 80 IU/L (40-130); Anion Gap 13.9 (5-19); Aspartate Amino Transferase 41 U/L (0-40); Blood Urea Nitrogen 5 mg/dL (6-20); Carbon Dioxide 26 mmol/L (22-29); Chloride 102 mmol/L (98-107); Globulin 3.6 g/dL (1.3-4.6); Glomerular Filtration Rate 155.2 mL/min (90-130); Glucose 123 mg/dL (65-115); Osmolality Calculated 283 mOsm/kg (285-295); Potassium 3.9 mmol/L (3.5-5.1); Sodium 138 mmol/L (136-145); Total Bilirubin 0.5 mg/dL (0.15-1.2); Total Protein 7.1 g/dL (6.6-8.7)
[2019-11-26] MEDS: LORazepam 2 mg/mL INJ 1 mL IVP (08:02)
[2019-11-26] MEDS: folic acid 1 mg Tablet PO (08:02)
[2019-11-26] MEDS: thiamine 100 mg Tablet PO (08:02)
[2019-11-26] MEDS: pantoprazole DR 40 mg Tablet PO (08:02)
[2019-11-26] MEDS: multivitamin therapeutic Tablet 1 TAB PO (08:02)
--- NOTE | 2019-11-26 11:41 | PM.DCS ---
Discharge Providers Date of Admission: 11/23/19 19:54 Date of Discharge: November 26, 2019 Attending Provider at Admission: Yolanda Chauhan MD Attending Provider at Discharge: Flako Mays MD Diagnoses at Discharge Discharge Diagnosis (1) Acute respiratory failure with hypoxia: Status: Acute (2) Drug overdose: Status: Acute Qualifiers: Encounter type: initial encounter Injury intent: accidental or unintentional Qualified Code(s): T50.901A - Poisoning by unspecified drugs, medicaments and biological substances, accidental (unintentional), initial encounter (3) Bilateral pulmonary infiltrates on chest x-ray: Status: Acute (4) Hemoptysis: Status: Acute (5) Narcotic abuse: Status: Acute (6) Alcohol use: Status: Acute (7) Hepatitis C antibody test positive: Status: Acute Reason for Visit Reason for Visit: Reason For Visit: OVERDOSE, RESP DISTRESS Hospital Course Discharge Summary: Uziel Moy is a 34 year old male who presented to the emergency room via EMS after an accidental fentanyl overdose. His friend started CPR on him in the field. EMS arrived and gave him Narcan. He became agitated after that and did get some Versed. Chest x-ray in the emergency room showed bilateral infiltrates and patient was having some hypoxemia. He remained lethargic as well. He was ultimately put on BiPAP. He states that he uses narcotics usually in IV route about once a week. Denied any suicide attempt. Denies any recent problems with cough, fever. No known sick contacts including no known sick contacts with COVID-19. Patient denies previous hospitalizations for narcotic overdose. He has had alcohol withdrawal symptoms before. He did admit to drinking this evening. Denied any significant medical problems. During the course of my evaluation in the emergency room, patient began having hemoptysis. It was pinkish-red with a slightly frothy appearance. Due to intoxication and respiratory failure with hypoxia he was admitted to the ICU on BiPAP. He was treated with broad-spectrum antibiotics for possible aspiration pneumonitis. Hemoptysis is most likely due to post CPR status and have resolved on its own. COVID 19 testing was done and came back negative. He responded well to the treatment and his symptoms resolved. He did not show any signs or symptoms of withdrawal. Patient denied of having any suicidal or homicidal ideation and stated that he uses IV narcotics sometimes as recreational drugs. He was given an option and was counseled regarding rehabilitation programs which can help him with quitting if he wanted. He stated he will think about it and will seek help when needed. He has been discharged hemodynamically stable condition with advised to follow-up with his primary care physician. Physical Exam Narrative: EXAM NARRATIVE: General: No acute distress, AO x3, not lethargic, CIWA?3 HEENT: PERRLA, pupils bilaterally equal and reactive Chest: Normal vesicular breath sounds, rhonchi, coarse crackles present on the left lower zone more than right lower zone. CVS: S1-S2 regular, no murmurs, no tachycardia, no gallops, no rubs Abdomen: Soft, nontender, no organomegaly, bowel sounds present Neuro: No focal deficits, no facial deformity, AO x3, power 5/5 in all limbs Discharge Data Data Completed and Pending: Completed Studies During Hospitalization Category Date Time Status XR chest 1V sukhjinder ble [id number] Stat Exams 11/23/19 17:51 Completed XR chest 1V sukhjinder ble [id number] Urgent Exams 11/23/19 15:51 Completed Pending at discharge Category Date Time Status Blood Culture Sta t Lab 11/23/19 18:37 Results Vancomycin Trough Timed Lab 11/26/19 18:00 Ordered Labs from last 24 hours 11/26/19 11/26/19 11/25/19 04:55 04:55 04:00 WBC 9.6 RBC 4.43 Hgb 13.6 Hct 39.6 L MCV 89.4 MCH 30.7 MCHC 34.3 RDW 12.0 L Plt Count 155 MPV 10.0 Neut % (Auto) 62.8 Lymph % (Auto) 26.3 Leake % (Auto) 7.4 Eos % (Auto) 3.0 Baso % (Auto) 0.3 Neut # (Auto) 6.1 Lymph # (Auto) 2.5 Leake # (Auto) 0.7 Eos # (Auto) 0.3 Baso # (Auto) 0.0 Nucleated RBC % (a uto) 0 Nucleated RBCs # 0.0 Sodium 138 Potassium 3.9 Chloride 102 Carbon Dioxide 26 Anion Gap 13.9 BUN 5 L Creatinine 0.6 L GFR Calculation 155.2 H Glucose 123 H Calculated Osmolal ity 283 L Calcium 9.0 Total Bilirubin 0.5 AST 41 H ALT 67 H Alkaline Phosphata se 80 Total Protein 7.1 Albumin 3.5 Globulin 3.6 Hepatitis A IgM Ab Hep Bs Antigen Hep Bs Antibody Hep B Core Total A b Hepatitis C Antibo dy HIV 1&2 Ab & HIV 1 Ag Non-reactive HIV 1&2 Antibody Non-reactive 11/25/19 04:00 WBC RBC Hgb Hct MCV MCH MCHC RDW Plt Count MPV Neut % (Auto) Lymph % (Auto) Leake % (Auto) Eos % (Auto) Baso % (Auto) Neut # (Auto) Lymph # (Auto) Leake # (Auto) Eos # (Auto) Baso # (Auto) Nucleated RBC % (a uto) Nucleated RBCs # Sodium Potassium Chloride Carbon Dioxide Anion Gap BUN Creatinine GFR Calculation Glucose Calculated Osmolal ity Calcium Total Bilirubin AST ALT Alkaline Phosphata se Total Protein Albumin Globulin Hepatitis A IgM Ab Non-reactive Hep Bs Antigen Non-reactive Hep Bs Antibody > 1000.0 H Hep B Core Total A b Non-reactive Hepatitis C Antibo dy Reactive H HIV 1&2 Ab & HIV 1 Ag HIV 1&2 Antibody Vitals: Last Vital Signs Temp 98.0 F 11/26/19 11:07 Pulse 106 H 11/26/19 11:07 Resp 18 11/26/19 11:07 BP 117/79 11/26/19 11:07 Pulse Ox 95 11/26/19 11:07 Discharge Plan Discharge Patient Disposition: Home, Self-Care Condition: Stable Prescriptions: New levofloxacin 750 mg tablet 750 mg PO DAILY 4 Days Qty: 4 RF: 0 Daily Multi-Vitamin Tablet 1 tab PO DAILY Qty: 30 RF: 0 Discharge Orders: Discharge Order (Routine); Ordered 11/26/19 Ordered By: Flako Mays Referrals: Domenic Brandt NP [Referring] - 12/03/19 11:15 am (Please call prior to your appointment to find out what time to arrive to fill out new PT paperwork.) Discharge Diet: Regular Discharge Activity: Resume usual activity Patient Instructions: Alcohol Abuse, Alcohol Withdrawal, Multivitamins, Adult Formula (By mouth), Levofloxacin (By mouth), Hepatitis C, Acute Respiratory Distress Syndrome (DC), Benzodiazepine Abuse (DC) Activity Restrictions/Additional Instructions: Please continue voiding replacement drugs like fentanyl. Please try avoiding excessive alcohol use. As discussed if you want we can help you with arranging with rehabilitation. Please follow-up with the primary care physician for hepatitis C work-up and further treatment. Please take antibiotics for 4 more days to finish course. 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
== END 2019-11-26 12:44 | disposition home or self-care (01) | DRG 917 ==
LOC: ER 22:40 → ICU 22:41 → MEDSURG 11-25 11:31
PROVIDERS: Internal Medicine; Admitting Provider Hospitalist; Emergency Provider Emergency Medicine; Visit Provider Student in an Organized Health Care Education/Training Program
DX: T40.4X1A Poisoning by other synthetic narcotics, accidental (unintentional), initial encounter (principal); J69.0 Pneumonitis due to inhalation of food and vomit; J96.01 Acute respiratory failure with hypoxia; R04.2 Hemoptysis; Y92.9 Unspecified place or not applicable; F10.129 Alcohol abuse with intoxication, unspecified; F17.210 Nicotine dependence, cigarettes, uncomplicated; F11.10 Opioid abuse, uncomplicated; R00.0 Tachycardia, unspecified; B19.20 Unspecified viral hepatitis C without hepatic coma
CPT/HCPCS: 12345; 36415; 36600; 71045; 80053; 80069; 80202; 80306; 80307; 82550; 82803; 83605; 83615; 83735; 83880; 84145; 85025; 86140; 86403; 86705; 86706; 86709; 86803; 87040; 87070; 87205; 87340; 87449; 87635; 87641; 87806; 93005; 94660; 96374; 96375; 99283; C9113; J1956; J2060; J2310; J2405; J2543; J3370; J3411; J7030; J7050